=== PATIENT | female | born 1980 | race African-American/Black ===

== ENCOUNTER 2022-09-04 11:49 | Emergency (ER) | payer OTHER ==
[~2022-09-04] VITALS: Ht 172.7 cm; Wt 65.3 kg
[~2022-09-04 11:49] MED LIST: ALBU2.5V4 IH; CEPH-507 PO; CEPH500C PO; CIPR500T78 PO; NAPR-1071 PO
[2022-09-04 11:50] VITALS: BP 124/86
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
== END 2022-09-04 12:21 ==
LOC: EDUNIT# 11:49 → ER FS 11:51
DX: S51.811A Laceration without foreign body of right forearm, initial encounter (principal); S61.212A Laceration without foreign body of right middle finger without damage to nail, initial encounter; F29 Unspecified psychosis not due to a substance or known physiological condition; R45.6 Violent behavior; W25.XXXA Contact with sharp glass, initial encounter

== ENCOUNTER 2023-01-27 19:30 | Emergency (ER) | payer OTHER ==
[~2023-01-27] VITALS: Ht 167 cm; Wt 138.0 kg
[2023-01-27 19:37] VITALS: BP 139/89
[2023-01-27] MEDS ORDERED: ONDANSETRON 4 MG (ZOFRAN) ORAL DISSOLVE TAB PO STA (19:44)
--- NOTE | 2023-01-27 19:51 | ED Head Injury ---
General Stated Complaint: SWELLING| FOREHEAD| NOSE Source: patient History of Present Illness Date Seen by Provider: Jan 27, 2023 Time Seen by Provider: 19:35 Initial Comments 42-year-old female presenting to the emergency department with deputy from [facility]. Patient was arrested yesterday and in the process of being arrested had hit her head on the wood floor at home. She has an abrasion to her middle of the forehead at the scalp line and surrounding hematoma. She is complaining of pain and pressure at the site of the hematoma. She feels nauseat ed and that feels worse when she is moving. She states that she is also dizzy in addition to having the headache. She denies having any actual vomiting, change in her vision, numbness or weakness in her arms or legs. Occurred: yesterday Severity: moderate Location: frontal Method of Injury: fell Loss of Consciousness: no loss of consciousness Associated Systoms: No Chest Pain, No Cough, No Diaphoresis, No Fever/Chills; Headaches; No Loss of Appetite, No Malaise, No Seizure, No Shortness of Air, No Syncope, No Weakness Allergies and Home Medications Allergies Coded Allergies: Penicillins (Verified Allergy, Unknown, 01/25/15) morphine (Verified Allergy, Unknown, 01/25/15) tramadol (Unverified Allergy, Unknown, 01/25/15) Patient Home Medication List Home Medication List Reviewed: Yes Albuterol Sulfate (Albuterol Sulfate) 2.5 Mg/3 Ml Vial.neb, 2.5 MG IH Q4H PRN for SHORTNESS OF BREATH, (Reported) Entered as Reported by: SHAYNE ACKERMAN on 09/14/152108 Cephalexin (Keflex) 500 Mg Capsule, 500 MG PO TID Prescribed by: GONZÁLEZ BARNES on 10/03/151713 Cephalexin (Cephalexin) 500 Mg Capsule, 500 MG PO TID Prescribed by: BERHANE ROWE on 10/25/152142 Naproxen (Naprosyn) 500 Mg Tablet, 500 MG PO BID Prescribed by: GONZÁLEZ BARNES on 10/03/151713 Naproxen (Naprosyn) 500 Mg Tablet, 500 MG PO BID PRN for PAIN Prescribed by: BERHANE ROWE on 10/25/152142 Review of Systems Review of Systems Constitutional: No chills; dizziness; No fever Eyes: Denies Blurred Vision, Denies Vision Changes Ears, Nose, Mouth, Throat: denies ear pain, denies nose pain, denies epistaxis Respiratory: no symptoms reported Cardiovascular: no symptoms reported Gastrointestinal: nausea; No vomiting Genitourinary: No dysuria Musculoskeletal: No neck pain Skin: see HPI Psychiatric/Neurological: See HPI Past Ajrihcm-Rywlcn-Ehtnuz Hx Patient Social History Substance use?: Yes Substance type: Methamphetamine Seasonal Allergies Seasonal Allergies: No Past Medical History Abdominal, Bladder Surgery, Gallbladder, Tubal Ligation Asthma Reproductive Disorders: Yes (S/P UTERINE ABLATION) Female Reproductive Disorders: Menstrual Problems Gall Bladder Disease Family Medical History No Pertinent Family Hx Physical Exam Vital Signs Vital Signs - First Documented 01/27/23 19:37 Temp 36.3 Pulse 94 Resp 18 B/P (MAP) 139/89 (106) Pulse Ox 100 O2 Delivery Room Air Capillary Refill : Height, Weight, BMI Height: 5'7" Weight: 110lbs. oz. 49.398420qy; 21.00 BMI Method:Stated General Appearance: no apparent distress, other (disheveled appearance) HEENT: PERRL/EOMI, normal ENT inspection, pharynx normal Neck: non-tender, full range of motion, supple, normal inspection Cardiovascular: normal peripheral pulses, regular rate, rhythm Respiratory: chest non-tender, lungs clear, normal breath sounds Psychiatric: alert, oriented x 3 Crainal Nerves: normal hearing, normal speech, PERRL Coordination/Gait: normal gait Motor/Sensory: no motor deficit, no sensory deficit Skin: warm/dry, ecchymosis (superficial abrasion forehead with hematoma and swelling involving her forehead) [place] Coma Score Best Eye Response: (4) Open Spontaneously Best Verbal Response: (5) Oriented Best Motor Response: (6) Obeys Commands [place] Total: 15 Images 1 - superficial abrasion at scalp line and hematoma involving majority of fo rehead Progress/Results/Core Measures Results/Orders My Orders Orders - ALPHONSO BENITEZ MD Ondansetron Oral Dissolve Tab (Zofran (01/27/23 19:44) Ct Head Wo (01/27/23 19:45) Vital Signs/I&O 01/27/23 19:37 Temp 36.3 Pulse 94 Resp 18 B/P (MAP) 139/89 (106) Pulse Ox 100 O2 Delivery Room Air Progress Progress Note #1: Progress Note Potential diagnosis of concussion, intracranial hemorrhage, skull fracture, closed head injury, forehead hematoma. Ordered Zofran 4 mg ODT to try and help with nausea. She was asking for fluids so will allow her to drink water. Obtain CT scan of the head since she was complaining of increased somnolence since the head injury. Progress Note #2: Time: 20:17 Progress Note I reviewed radiologist report on CT head without contrast that showed no skull fracture or intracranial hemorrhage. The radiologist was concerned she might have an aneurysm of the left ICA and recommends CT angiography could further detail that. Will discharge back to custodial and give recommendation that as an outpatient for follow up seeing clinic and consider at CT scan of blood vessels of head to see if that was truly an aneurysm or if was artifact. Diagnostic Imaging Diagonstic Imaging: CT Plain Films/CT/US/NM/MRI: head Comments NAME: ZEINA CABAN [facility] REC#: [id number] PT STATUS: REG ER : 1980 PHYSICIAN: ALPHONSO BENITEZ MD ADMIT DATE: 01/27/23/ER FS Signed Date of Exam:01/27/23 CT HEAD WO PROCEDURE: CT head without contrast. TECHNIQUE: Multiple contiguous axial images were obtained through the brain without the use of intravenous contrast. Auto Exposure Controls were utilized during the CT exam to meet ALARA standards for radiation dose reduction. INDICATION: Nausea, somnolence, head injury. COMPARISON: None FINDINGS: Frontal scalp swelling. No skull fracture. The paranasal sinuses and mastoids are clear. The globes and orbits are normal. No acute intracranial hemorrhage. The huertas-white matter differentiation is preserved. Rounded soft tissue prominence and calcification in region of left ICA terminus concerning for aneurysm. The huertas-white matter differentiation is preserved. No midline shift or mass effect. No intracranial mass or fluid collection. IMPRESSION: Rounded soft tissue prominence and calcification in region of left ICA terminus concerning for aneurysm. Recommend further workup with CT angiography of the head and neck. No acute intracranial hemorrhage. No large vascular territory salazar-white loss. No intracranial mass, midline shift, or hydrocephalus. Dictated by: Dictated on workstation # [id number] Dict: 01/27/232001 Trans: 01/27/232007 [facility] [place] [id number] Interpreted by: MONI ALVARADO DO Electronically signed by: MONI ALVARADO DO 01/27/232007 Reviewed: Reviewed by Me Departure Impression Primary Impression: Traumatic hematoma of forehead Qualified Codes: S00.83XA - Contusion of other part of head, initial encounter Additional Impressions: Abrasion of forehead Qualified Codes: S00.81XA - Abrasion of other part of head, initial encounter Closed head injury with concussion Qualified Codes: S06.0X0A - Concussion without loss of consciousness, initial encounter Disposition: 01 HOME, SELF-CARE Condition: Stable Departure-Patient Inst. Decision time for Depature: 20:19 Referrals: [facility] [place]) Primary Care Physician Patient Instructions: Minor Head Injury, Adult ED, Concussion, Adult ED, Minor Contusion ED, Abrasions ED Add. Discharge Instructions: Keep abrasion on forehead clean with soap and water. May apply ice for 15 minutes 4 times a day as needed to help with hematoma and swelling on the forehead. May continue with acetaminophen and/or ibuprofen for pain. Try to keep head elevated 20 to 30 degrees when sleeping to help limit further swelling and pressure with the hematoma. Radiologist recommends that you follow up as an outpatient for CT Angiography of the head to look at the blood vessels in head for possible aneurysm of the left carotid artery. Call your doctor and they can help order additional testing to look at this. ALPHONSO BENITEZ MD Jan 27, 2023 19:51
--- NOTE | 2023-01-27 20:10 | Diagnostic Imaging Report ---
PROCEDURE: CT head without contrast. TECHNIQUE: Multiple contiguous axial images were obtained through the brain without the use of intravenous contrast. Auto Exposure Controls were utilized during the CT exam to meet ALARA standards for radiation dose reduction. INDICATION: Nausea, somnolence, head injury. COMPARISON: None FINDINGS: Frontal scalp swelling. No skull fracture. The paranasal sinuses and mastoids are clear. The globes and orbits are normal. No acute intracranial hemorrhage. The huertas-white matter differentiation is preserved. Rounded soft tissue prominence and calcification in region of left ICA terminus concerning for aneurysm. The huertas-white matter differentiation is preserved. No midline shift or mass effect. No intracranial mass or fluid collection. IMPRESSION: Rounded soft tissue prominence and calcification in region of left ICA terminus concerning for aneurysm. Recommend further workup with CT angiography of the head and neck. No acute intracranial hemorrhage. No large vascular territory salazar-white loss. No intracranial mass, midline shift, or hydrocephalus. Dictated by: Dictated on workstation # [id number]
== END 2023-01-27 20:27 | disposition home or self-care (01) ==
LOC: EDUNIT# 19:30 → ER FS 19:35
DX: S06.0XAA Concussion with loss of consciousness status unknown, initial encounter (principal); S00.83XA Contusion of other part of head, initial encounter; R40.2362 Coma scale, best motor response, obeys commands, at arrival to emergency department; R40.2142 Coma scale, eyes open, spontaneous, at arrival to emergency department; R40.2252 Coma scale, best verbal response, oriented, at arrival to emergency department; Z28.310 Unvaccinated for COVID-19; W18.30XA Fall on same level, unspecified, initial encounter; W22.8XXA Striking against or struck by other objects, initial encounter; Y92.009 Unspecified place in unspecified non-institutional (private) residence as the place of occurrence of the external cause
CPT/HCPCS: 70450